=== PATIENT | male | born 1970 | race Caucasian/White ===

== ENCOUNTER 2019-06-29 11:38 | Outpatient (CLI) | payer SELFPAY ==
[2019-06-29 11:53] LABS: Basophils Absolute Auto 0.07 K/mm3 (0.00-0.10); Basophils Percent Auto 0.8 % (0.0-1.0); Eosinophils Absolute Auto 0.22 K/mm3 (0.02-0.50); Eosinophils Percent Auto 2.4 % (1.0-6.0); Hematocrit 44.6 % (40.0-54.0); Hemoglobin 15.6 g/dL (14.0-18.0); Immature Granulocyte Absolute 0.16 K/mm3 (0.00-0.00); Immature Granulocyte Percent A 1.8 % (0.0-0.0); Lymphocytes Absolute Auto 1.94 K/mm3 (1.10-4.50); Lymphocytes Percent Auto 21.4 % (18.0-42.0); Mean Corpuscular Hemoglobin 31.3 pg (27.0-31.0); Mean Corpuscular Volume 89.6 fL (78.0-102.0); Mean Platelet Volume 9.2 fl (8.7-11.0); Monocytes Absolute Auto 0.68 K/mm3 (0.10-0.90); Monocytes Percent Auto 7.5 % (2.0-11.0); Neutrophils Percent Auto 66.1 % (50.0-70.0); Platelet Count Result 297 K/mm3 (150-420); Red Blood Count 4.98 M/mm3 (4.70-6.10); Red Cell Distribution Width 13.8 % (11.6-14.4); White Blood Count 9.1 K/mm3 (4.8-10.8)
[2019-06-29 12:23] LABS: Alanine Aminotransferase 72 U/L (16-63); Albumin Level 3.8 g/dL (3.4-5.0); Alkaline Phosphatase 74 U/L (46-116); Anion Gap 14.3 mmol/L (7-16); Aspartate Amino Transferase 34 U/L (15-37); Bilirubin,Total 0.4 mg/dL (0.00-1.00); Blood Urea Nitrogen 21 mg/dL (7-18); Carbon Dioxide 27 mmol/L (21-32); Chloride 102 mmol/L (98-108); Cholesterol 237 mg/dL (0-200); Estimated Glomerular Filt Rate > 60; Glucose 104 mg/dL (70-99); HDL Direct 66 mg/dL (40-60); LDL Cholesterol Calculated 145 mg/dL (<130); Osmolality Calculated 291 mOsm/kg (285-295); Potassium 4.3 mmol/L (3.5-5.1); Sodium 139 mmol/L (136-145); Total Protein 7.6 g/dL (6.4-8.2); Triglycerides 132 mg/dL (0-150)
[2019-06-29 12:40] LABS: Calcium 8.9 mg/dL (8.5-10.1)
== END 2019-06-29 11:39 | disposition home or self-care (01) ==
PROVIDERS: PCP Nurse Practitioner Family; Visit Provider Nurse Practitioner Family
DX: I10 Essential (primary) hypertension (principal); R73.09 Other abnormal glucose
CPT/HCPCS: 36415; 80053; 80061; 83036; 85025

== ENCOUNTER 2019-07-05 10:27 | Outpatient (CLI) | payer BC, SELFPAY ==
--- NOTE | 2019-07-05 | EST_ITS ---
Patient Info Name: Conor Gorman Age: 48 years : 1970 Gender: Male Ht: 73 in Wt: 310 lbs BSA: 2.75 m2 Exam Date: 07/05/2019 10:48 AM Exam Location: [facility] Stress Patient Status: Outpatient Admit Date: 07/05/2019 Staff Ordering Physician: PHYSICIAN NOT ON STAFF, NONSTAFF Attending Provider: UNKNOWN, DOCTOR Exercise Technologist: Simran Allen RDCS Exercise Physician: Jordi Zuñiga DO Exam Type: CA stress test treadmill Study Info Indications R06.02 - Shortness of breath I10 - Essential (primary) hypertension A treadmill exercise stress test was performed. Summary 1. 1. Negative Johnnie exercise stress test for ischemic ST changes by ECG criteria. 2. 2. Mildly reduced functional capacity, achieving 8.9 METs of workload. 3. 3. Baseline hypertension with hypertensive response to exercise. 4. 4. Appropriate HR response to exercise. 5. 5. Appropriate HR recovery at 1 minute post exercise. 6. 6. No imaging with stress testing. 7. 7. Patient informed of the above results. Protocol: Johnnie Stress ECG Details Stage: REST Duration (min): 7 min : 20 sec Speed (mph): 0.0 Grade (%): 0 HR (bpm): 80 SBP (mmHg): 143 DBP (mmHg): 93 METS: --- Stage: REST Duration (min): 10 min : 2 sec Speed (mph): 0.0 Grade (%): 0 HR (bpm): 87 SBP (mmHg): 143 DBP (mmHg): 93 METS: --- Stage: STAGE 1 Duration (min): 1 min : 0 sec Speed (mph): 1.7 Grade (%): 10 HR (bpm): 101 SBP (mmHg): 143 DBP (mmHg): 93 METS: --- Stage: STAGE 1 Duration (min): 2 min : 0 sec Speed (mph): 1.7 Grade (%): 10 HR (bpm): 105 SBP (mmHg): 143 DBP (mmHg): 93 METS: --- Stage: STAGE 1 Duration (min): 3 min : 0 sec Speed (mph): 1.7 Grade (%): 10 HR (bpm): 113 SBP (mmHg): 186 DBP (mmHg): 97 METS: --- Stage: STAGE 2 Duration (min): 1 min : 0 sec Speed (mph): 2.5 Grade (%): 12 HR (bpm): 119 SBP (mmHg): 186 DBP (mmHg): 97 METS: --- Stage: STAGE 2 Duration (min): 2 min : 0 sec Speed (mph): 2.5 Grade (%): 12 HR (bpm): 130 SBP (mmHg): 217 DBP (mmHg): 120 METS: --- Stage: STAGE 2 Duration (min): 3 min : 0 sec Speed (mph): 2.5 Grade (%): 12 HR (bpm): 137 SBP (mmHg): 235 DBP (mmHg): 113 METS: --- Stage: STAGE 3 Duration (min): 1 min : 0 sec Speed (mph): 3.4 Grade (%): 14 HR (bpm): 144 SBP (mmHg): 210 DBP (mmHg): 115 METS: --- Stage: STAGE 3 Duration (min): 1 min : 6 sec Speed (mph): 3.4 Grade (%): 14 HR (bpm): 147 SBP (mmHg): 210 DBP (mmHg): 115 METS: --- Stage: RECOVERY Duration (min): 0 min : 53 sec Speed (mph): 0.0 Grade (%): 0 HR (bpm): 130 SBP (mmHg): 210 DBP (mmHg): 115 METS: --- Stage: RECOVERY Duration (min): 1 min : 53 sec Speed (mph): 0.0 Grade (%): 0 HR (bpm): 118 SBP (mmHg): 233 DBP
--- NOTE | ~2019-07-05 | XR_ITS ---
EXAMINATION: XR knee LT 2V DATE: 07/05/2019 11:25 INDICATION: Chronic left knee pain. TECHNIQUE: 2 views of left knee were obtained. COMPARISON: Left knee radiographs 05/04/2011 FINDINGS: Bone alignment is normal. No fracture. There is moderate osteoarthritis of medial and ashley lofemoral compartments and mild osteoarthritis of lateral compartment. No knee joint effusion. IMPRESSION: 1. Moderate left knee osteoarthritis. Reviewed, dictated and finalized at location A.
== END 2019-07-05 10:28 | disposition home or self-care (01) ==
PROVIDERS: PCP Nurse Practitioner Family
DX: I10 Essential (primary) hypertension (principal); R06.02 Shortness of breath; M25.562 Pain in left knee; M17.12 Unilateral primary osteoarthritis, left knee
CPT/HCPCS: 73560; 93017

== ENCOUNTER 2019-09-15 14:10 | Outpatient (CLI) | payer BC, SELFPAY ==
--- NOTE | 2019-09-15 14:16 | ECHO_ITS ---
Patient Info Name: Conor Gorman Age: 48 years : 1970 Gender: Male Ht: 73 in Wt: 315 lbs BSA: 2.77 m2 HR: 81 bpm BP: 158 / 75 mmHg Heart Rhythm: Sinus Rhythm Technical Quality: Poor Exam Date: 09/15/2019 2:30 PM Exam Location: [facility] Patient Status: Outpatient Admit Date: 09/15/2019 Staff Ordering Physician: Yamini Jones NP Dry Goods Clerk: Juliana Srinivasan RDCS Attending Provider: Yamini Jones NP Referring Physician: Robert TEMPLETON; Exam Type: CA echo doppler color flow Study Info Indications R06.02 - Shortness of breath Complete two-dimensional, color flow and Doppler transthoracic echocardiogram is performed. Strain analysis performed. Reason for Poor Study: patient body habitus History/Risk Factors Hypertension: Yes Dyslipidemia: No Congenital Heart Disease (CHD): No Peripheral Arterial Disease (PAD): No Myocardial Infarction (NV): No Chronic Lung Disease: No Obesity: Yes Renal Disease: No Congestive Heart Failure (CHF): No Cardiomyopathy/LV Systolic Dysfunction: No Diabetes Mellitus: No COPD: No Tobacco Use: Never Cerebrovascular Disease: No Family History: Diabetes Mellitus, Coronary Artery Disease Deep Vein Thrombosis (DVT): None Dialysis: None Frailty Scale (CSHA): 3: Managing Well Cardiac Arrest: No Prior Interventions Pacemaker: No PCI: No CABG: No Valve Surgery: No ICD: No PV Intervention: None Heart Transplant: No Summary 1. Left ventricular chamber dimension is mildly enlarged. 2. Left ventricular systolic function is normal, estimated at 55-60%. 3. The left ventricular diastolic function is grade I diastolic dysfunction. 4. E/e' 11 is mildly elevated. 5. Global longitudinal strain is abnormal at -14.8%. 6. No pulmonary hypertension, estimated pulmonary arterial systolic pressure is 16 mmHg. Left Ventricle E/e' 11 is mildly elevated. Global longitudinal strain is abnormal at -14.8%. Left ventricular chamber dimension is mildly enlarged. Left ventricular systolic function is normal, estimated at 55-60%. The left ventricular diastolic function is grade I diastolic dysfunction. Right Ventricle Right ventricular chamber dimension is normal. Right ventricular systolic function is normal. Left Atria Left atrial chamber dimension is normal. Right Atria Right atrial chamber dimension is normal. Aortic Valve The aortic valve is trileaflet. There is no aortic valve stenosis. There is no aortic valve regurgitation. Pulmonic Valve There is no pulmonic regurgitation. Mitral Valve There is no mitral valve stenosis. There is no mitral valve regurgitation. Tricuspid Valve There is no tricuspid valve regurgitation. No pulmonary hypertension, estimated pulmonary arterial systolic pressure is 16 mmHg. Pericardium/Pleural There is no pericardial effusion. Inferior Vena Cava Normal inferior vena cava with >50% collapse upon inspiration consistent with normal right atrial pressure, 5 mmHg. Aorta The aortic root size at the sinus of Valsalva is normal. Left Ventricular Outflow Tract Name Value Normal LVOT 2D
== END 2019-09-15 14:11 | disposition home or self-care (01) ==
LOC: CHSIMG 14:12
PROVIDERS: PCP Nurse Practitioner Family; Visit Provider Nurse Practitioner Family
DX: R06.02 Shortness of breath (principal)
CPT/HCPCS: 93306

== ENCOUNTER 2020-05-18 12:24 | Outpatient (CLI) | payer SELFPAY ==
[2020-05-18 13:24] LABS: Alanine Aminotransferase 65 U/L (4-50); Albumin Level 4.2 g/dL (3.5-5.1); Alkaline Phosphatase 80 U/L (38-126); Anion Gap 6 mmol/L (8-16); Aspartate Amino Transferase 53 U/L (17-59); Bilirubin,Total 0.6 mg/dL (0.2-1.3); Blood Urea Nitrogen 12 mg/dL (9-20); Calcium 8.9 mg/dL (8.4-10.2); Carbon Dioxide 28 mmol/L (22-30); Chloride 96 mmol/L (98-107); Cholesterol 174 mg/dL (0-200); Estimated Glomerular Filt Rate > 60; Glucose 113 mg/dL (75-110); HDL Direct 56 mg/dL; Potassium 3.9 mmol/L (3.4-5.0); Sodium 130 mmol/L (137-145); Triglycerides 105 mg/dL (<150)
[2020-05-18 13:32] LABS: Hemoglobin A1C 5.4 % (<5.7)
[2020-05-18 13:35] LABS: LDL Cholesterol Direct 97 mg/dL
== END 2020-05-18 12:25 | disposition home or self-care (01) ==
PROVIDERS: PCP Nurse Practitioner Family; Visit Provider Internal Medicine Cardiovascular Disease
DX: E78.5 Hyperlipidemia, unspecified (principal)
CPT/HCPCS: 36415; 80053; 80061; 83036

== ENCOUNTER 2020-09-25 10:54 | Outpatient (CLI) | payer BC, SELFPAY ==
--- NOTE | ~2020-09-25 | US_ITS ---
EXAMINATION: US soft tissue head and neck DATE: 09/25/2020 11:24 INDICATION: Right posterior neck lump. TECHNIQUE: Multiple grayscale and Doppler ultrasound images of the neck were obtained. COMPARISON: None FINDINGS: In the right posterior neck, there is a 2.1 x 2.0 x 1.2 cm subcutaneous hyperechoic mass. IMPRESSION: 1. 2.1 cm nonspecific subcutaneous mass in right posterior neck. The differential diagnosis includes lipoma, other benign masses such as peripheral nerve sheath tumor, and less likely malignancy. Neck C T with contrast is recommended. Reviewed, dictated and finalized at location A. IMPRESSION: 1. 2.1 cm nonspecific subcutaneous mass in right posterior neck. The differenti al diagnosis includes lipoma, other benign masses such as peripheral nerve venegas th tumor, and less likely malignancy. Neck CT with contrast is recommended.
--- NOTE | ~2020-09-25 | XR_ITS ---
XR chest 2V DATE: 09/25/2020 11:27 INDICATION: Preprocedural examination TECHNIQUE: PA and lateral views COMPARISON: 05/27/2010 CT pulmonary scan and portable AP chest FINDINGS: Heart size is normal. No hilar or mediastinal enlargement. No pulmonary infiltrate or conso lidation, pleural effusion or pulmonary vascular congestion or pneumothorax. Degenerative spurring of the thoracic spine. IMPRESSION: No active cardiopulmonary disease Reviewed, dictated and finalized at location B.
--- NOTE | 2020-09-25 10:59 | ECG_ITS ---
Measurements Intervals [place] Rate: 62 P: -6 ID: [id number] QRS: 25 QRSD: 111 T: 46 QT: 422 QTc: 430 Interpretive Statements SINUS RHYTHM VENTRICULAR PREMATURE COMPLEX INTRAVENTRICULAR CONDUCTION DELAY BORDERLINE ECG Electronically Signed On 09-25-2020 11:50:03 CDT by Jordi Zuñiga D.O.
[2020-09-25 11:13] LABS: Add Urine Microscopic? NO; Appearance Urine Clear (Clear); Basophils Absolute Auto 0.06 K/mm3 (0.00-0.10); Basophils Percent Auto 0.9 % (0.0-1.0); Bilirubin Urine Negative (Negative); Blood Urine Negative (Negative); Color Urine Light Yellow (Yellow); Eosinophils Absolute Auto 0.14 K/mm3 (0.02-0.50); Eosinophils Percent Auto 2.1 % (1.0-6.0); Glucose Urine UA Negative (Negative); Hematocrit 45.8 % (40.0-54.0); Hemoglobin 15.6 g/dL (14.0-18.0); Immature Granulocyte Absolute 0.04 K/mm3 (0.00-0.00); Immature Granulocyte Percent A 0.6 % (0.0-0.0); Ketones Urine Negative (Negative); Leukocyte Esterase Ur Negative LEU/UL (Negative); Lymphocytes Absolute Auto 1.52 K/mm3 (1.10-4.50); Lymphocytes Percent Auto 22.8 % (18.0-42.0); Mean Corpuscular HGB Conc 34.1 g/dL (32.0-36.0); Mean Corpuscular Hemoglobin 30.6 pg (27.0-31.0); Mean Platelet Volume 8.9 fl (8.7-11.0); Monocytes Absolute Auto 0.57 K/mm3 (0.10-0.90); Monocytes Percent Auto 8.6 % (2.0-11.0); Neutrophils Absolute Auto 4.3 K/mm3 (1.7-7.2); Nitrate Urine Negative (Negative); Platelet Count Result 282 K/mm3 (150-420); Protein Urine Negative (Negative); Red Blood Count 5.09 M/mm3 (4.70-6.10); Red Cell Distribution Width 13.1 % (11.6-14.4); Urobilinogen Urine 0.2 mg/dL (0.2-1.0); White Blood Count 6.7 K/mm3 (4.8-10.8); pH Urine 6.5 (5.0-8.0)
[2020-09-25 11:46] LABS: Alanine Aminotransferase 76 U/L (16-63); Alkaline Phosphatase 73 U/L (46-116); Anion Gap 13 mmol/L (8-16); Aspartate Amino Transferase 25 U/L (15-37); Bilirubin,Total 0.6 mg/dL (0.00-1.00); Blood Urea Nitrogen 14 mg/dL (7-18); Calcium 9.2 mg/dL (8.5-10.1); Carbon Dioxide 26 mmol/L (21-32); Chloride 104 mmol/L (98-108); Estimated Glomerular Filt Rate > 60; Glucose 95 mg/dL (70-99); Osmolality Calculated 296 mOsm/kg (285-295); Potassium 4.2 mmol/L (3.5-5.1); Sodium 143 mmol/L (136-145); Total Protein 7.5 g/dL (6.4-8.2)
== END 2020-09-25 10:55 | disposition home or self-care (01) ==
LOC: CHSIMG 10:58
PROVIDERS: PCP Nurse Practitioner Family; Visit Provider Nurse Practitioner Family
DX: R22.1 Localized swelling, mass and lump, neck (principal); Z01.818 Encounter for other preprocedural examination
CPT/HCPCS: 36415; 71046; 76536; 80053; 81003; 85025; 93005

== ENCOUNTER 2020-10-03 08:41 | Outpatient (CLI) | payer BC, SELFPAY ==
--- NOTE | ~2020-10-03 | CT_ITS ---
EXAMINATION: CT soft tissue neck w con DATE: 10/03/2020 09:30 INDICATION: Right posterior neck lump. TECHNIQUE: Computed tomography (CT) of the neck was performed with 75 mL Omnipaque-350 intravenous co ntrast. Automated exposure control and iterative reconstruction technique were employed. The dose-eliza gth product was 607.48 mGy-cm. COMPARISON: Ultrasound 09/25/2020 FINDINGS: There are no pathologically enlarged lymph nodes. There is a 2.1 cm subcutaneous lipoma in the right posterior neck. A skin marker overlies this area. There is mild mucosal thickening in the p aranasal sinuses. There is mild plaque in the proximal internal carotid arteries with 0% stenosis rel ative to normal distal artery lumen diameters. There is severe cervical spondylosis. IMPRESSION: 1. 2.1 cm subcutaneous lipoma in right posterior neck. Reviewed, dictated and finalized at location A.
== END 2020-10-03 08:42 | disposition home or self-care (01) ==
LOC: CHSIMG 08:42
PROVIDERS: PCP Nurse Practitioner Family; Visit Provider Nurse Practitioner Family
DX: R22.0 Localized swelling, mass and lump, head (principal); R22.1 Localized swelling, mass and lump, neck
CPT/HCPCS: 70491; Q9967

== ENCOUNTER 2020-10-11 09:54 | Outpatient (CLI) | payer BC, SELFPAY ==
[2020-10-11 11:11] LABS: INR 0.9; Partial Thromboplastin Time 25.3 SECONDS (22.3-36.8); Prothrombin Time 12.2 Seconds (11.1-14.7)
[2020-10-11 11:21] LABS: Urine Cotinine NEGATIVE
[2020-10-11 13:09] LABS: Hemoglobin A1C 5.3 % (<5.7)
== END 2020-10-11 09:55 | disposition home or self-care (01) ==
LOC: ANHSURGERY 09:56
PROVIDERS: PCP Nurse Practitioner Family; Visit Provider Orthopaedic Surgery
DX: Z01.818 Encounter for other preprocedural examination (principal); M17.12 Unilateral primary osteoarthritis, left knee
CPT/HCPCS: 80307; 83036; 85610; 85730; 86850; 86900; 86901; 87081

== ENCOUNTER 2020-11-15 09:28 | Outpatient (CLI) | payer BC, SELFPAY | END 2020-11-15 09:29 | disposition home or self-care (01) | LOC: ANHSURGERY 09:33 | PROVIDERS: PCP Nurse Practitioner Family; Visit Provider Orthopaedic Surgery | DX: Z01.818 Encounter for other preprocedural examination (principal); M25.562 Pain in left knee | CPT/HCPCS: 36415; 86850; 86900; 86901 ==

== ENCOUNTER → 2020-11-17 00:08 | Outpatient (CLI) | payer BC, SELFPAY ==
[2020-11-17 18:03] LABS: SARS-CoV-2 RNA PCR Negative
== END ==
PROVIDERS: PCP Nurse Practitioner Family; Visit Provider Orthopaedic Surgery
DX: Z01.812 Encounter for preprocedural laboratory examination (principal); Z20.822 Contact with and (suspected) exposure to COVID-19
CPT/HCPCS: C9803; U0003; U0005

== ENCOUNTER 2020-11-21 01:35 | Day surgery (SDC) | payer BC, SELFPAY ==
[2020-10-11 09:54] VITALS: BMI 39.4
[2020-10-11 10:36] VITALS: BP 141/73; PULSE 66; RESP 16; TEMP 36.6; O2SAT 99
[2020-11-13 13:44] VITALS: BMI 38.9
--- NOTE | 2020-11-13 13:45 | PC.NURSE ---
Pt states no changes in medications or health history, except for excision of neck mass on 11/12, since initial interview. New pre-op instructions reviewed with patient. Pt denies any questions at this time.
[2020-11-21] VITALS (13 sets, daily range): BP systolic 140–175; BP diastolic 73–92; PULSE 65–92; RESP 16–116; TEMP 36.5–37.3; O2SAT 96–100; BMI 39.4
--- NOTE | ~2020-11-21 | XR_ITS ---
EXAMINATION: XR knee LT 2V EXAM DATE: 11/21/2020 10:51 INDICATION: Left knee arthroplasty. TECHNIQUE: Portable frontal, crosstable lateral projections left knee obtained immediately following arthroplasty performed by orthopedic surgeon Daniel Villalobos MD. FINDINGS: Patient is status post total knee arthroplasty. The orthopedic hardware is in expected po sition. There are delaney overlying the anterior aspect of the knee. There is small amount of subcu taneous gas, gas within the knee joint space. Overlying soft tissue swelling. Correlate with proced ure note. IMPRESSION: Status post total left knee arthroplasty. Reviewed, dictated and finalized at location A.
[2020-11-21] MEDS: LACTATED RINGERS 1,000 ML 30 ML IV CONT ×3 (06:40→12:20)
[2020-11-21] MEDS: TRANEXAMIC ACID 1,000MG/ISO100 1,000 MG/100 ML BAG 200 MG IVPB (06:44)
[2020-11-21] MEDS: ACETAMINOPHEN 500 MG TABLET 1000 MG PO (06:45)
--- NOTE | 2020-11-21 07:04 | WPDANESEPPF ---
Anes - Initial Pre Proc Eval Procedure: Operation Date: 11/21/20 07:30 Proposed Procedures p Left Total Knee Arthroplasty - Daniel Villalobos MD Date/Time: 11/21/20 07:04 Surgeon: Daniel Villalobos MD Pre Op Diagnosis: Left Knee DJD Patient Data Age: 50 Gender: M Height: 1.85 m Weight: 135.5 kg Last Vital Signs Temp 36.6 C 10/11/20 10:36 Pulse 66 10/11/20 10:36 Resp 16 10/11/20 10:36 BP 141/73 H 10/11/20 10:36 Pulse Ox 99 10/11/20 10:36 Allergies Allergy/AdvReac Type Severity Reaction Status Date / Time No Known Allergies Allergy Mild Verified 11/21/20 06:22 Home Medications Medication Instructions Recorded Confirmed Type cetirizine 10 mg tablet 10 mg PO DAILY PRN #30 tablet 02/13/20 11/16/20 Rx cyclobenzaprine 10 mg PO HS PRN 11/13/20 11/16/20 History hydrochlorothiazide 25 mg tablet 25 mg PO DAILY tablet 11/16/20 11/21/20 History Patient hx anesthesia problems: none Family hx anesthesia problems: none Results Review: All pre-operative results and documents have been reviewed as part of the pre-operative evaluation. [facility] Past Medical History Medical History Hypertension Osteoarthritis of left knee Weight gain Surgical History Surgical History H/O carpal tunnel repair H/O knee surgery L knee Family History Family History Father Family history of heart disease in male family member before age 55 Diabetes mellitus Hypertension Mother Heart disease Sibling Diabetes mellitus Social History Social History Smoking status: Never smoker Second hand tobacco smoke exposure: No Additional smoking assessment comments: DENIES ANY FORM OF TOBACCO USE Alcohol intake: current Drinks per week: 15 Alcohol use details: BEER Substance use: never Substance use type: does not use Living arrangements: with friend(s) Additional occupation/education comments: [email or web address] Gender identity (if verbalized by the patient): Male Spiritual care concerns: No Anes - Eval Final PreProcedure Day of Procedure 11/21/20 07:04 Patient weight: morbidly obese Heart: regular rate and rhythm Lungs: clear to auscultation Airway: Mallampati scale class III Neurological: alert and oriented Last oral intake: >/= 8 hours ASA classification: III Anesthetic plan: proceed Anesthesia type and monitoring: general LMA and standard monitoring Results Review: All pre-operative results and documents have been reviewed as part of the pre-operative evaluation. Informed Consent: The patient's anesthetic plan and its attendant risks and benefits were discussed with the patient/family/POA. Questions were solicited and answers provided to the satisfaction of the patient/family/POA.
--- NOTE | 2020-11-21 07:18 | WPDHPUPDATE1 ---
History and Physical Update Update Date/Time: 11/21/20 07:18 History and Physical has been reviewed, including an updated exam of the patient. There are NO changes in the patient's condition. Risks, benefits, and alternatives have been discussed and questions answered. Patient agrees to proceed with procedure.
[2020-11-21] MEDS: ceFAZolin 3 GM/D5W 100 ML 100 ML IVPB (07:30)
--- NOTE | 2020-11-21 07:30 | PM.IMHP ---
H&P: HPI History of Present Illness Date/Time: 11/21/20 07:30 Knee Pain Pt presents with left knee pain. He states his pain has been ongoing but has been worsening over the recent months. He was dx with DJD with varus deformity. He has participated in some PT. He also underwent a left knee injection 07/02/20 which, he states, has provided good pain relief. He states the injection is beginning to wear off, but still providing some relief. His BMI has lowered to 40.3%(from 44.8%). Involved knee: left Onset: gradual Location of pain: medial and anterior Character: stabbing, throbbing and shooting Timing of pain: constant Exacerbated by: weight bearing, kneeling, squatting, stairs, running, rotational activities, prolonged activity, walking up stairs and walking down stairs Relieved by: elevation, ice and rest Associated symptoms: Reports popping, instability, buckling, giving way and shifting History of occupational/recreational activity with repetitive motion: No History of prior knee injury: Yes (Left knee arthroscopy x2) Prior treatment: surgery (x2) Chief Complaint: LEFT KNEE PAIN Review of Systems Review of Systems: All systems reviewed & are unremarkable except as noted in HPI and below Constitutional: Constitutional: Reports no additional constitutional complaints Eyes: Eyes: Reports no additional eye complaints ENT: Reports system reviewed and no additional complaints, except as documented Cardiovascular: Cardiovascular: Reports no additional cardiovascular complaints Respiratory: Respiratory: Reports no additional respiratory complaints Gastrointestinal: Gastrointestinal: Reports no additional gastrointestinal complaints Genitourinary: Genitourinary: Denies hematuria Musculoskeletal: Musculoskeletal: Reports no additional musculoskeletal complaints and Reports as per HPI Integumentary/Breasts: Skin/Breast: Reports system reviewed and no additional complaints, except as docu Neurologic: Reports system reviewed and no additional complaints, except as documented Psychiatric: Psychiatric: Reports no additional psychiatric complaints Endocrine: Endocrine: Reports no additional endocrine complaints Hematologic/Lymphatic: Hematologic/Lymphatic: Reports no additional hematologic/lymphatic complaints Allergic/Immunologic: Allergic/Immunologic: Reports no additional allergic/immunologic complaints [facility] Past Medical History Medical History Hypertension Osteoarthritis of left knee Weight gain Surgical History Surgical History H/O carpal tunnel repair H/O knee surgery L knee Family History Family History Father Family history of heart disease in male family member before age 55 Diabetes mellitus Hypertension Mother Heart disease Sibling Diabetes mellitus Social History Social History Smoking status: Never smoker Second hand tobacco smoke exposure: No Additional smoking assessment comments: DENIES ANY FORM OF TOBACCO USE Alcohol intake: current Drinks per week: 15 Alcohol use details: BEER Substance use: never Substance use type: does not use Living arrangements: with friend(s) Additional occupation/education comments: [employer] Gender identity (if verbalized by the patient): Male Spiritual care concerns: No Meds Home Medications and Allergies Home Medications Medication Instructions Recorded Confirmed Type cetirizine 10 mg tablet 10 mg PO DAILY PRN #30 tablet 02/13/20 11/16/20 Rx cyclobenzaprine 10 mg PO HS PRN 11/13/20 11/16/20 History hydrochlorothiazide 25 mg tablet 25 mg PO DAILY tablet 11/16/20 11/21/20 History Allergies Allergy/AdvReac Type Severity Reaction Status Date / Time No Known Allergies Allergy Mild Verified 10/25
--- NOTE | 2020-11-21 07:33 | WPDANESPNB ---
Anes - Peripheral Nerve Block Date/Time: 11/21/20 07:33 I have discussed with the patient/family/POA the placement of a peripheral nerve block for post-operative pain management, including associated risks, benefits, complications, and side effects. Alternative methods of post-operative analgesia were detailed. Questions were solicited and answers provided to the satisfaction of the patient/family/POA. Time-Out: A pre-procedural Time-Out was completed immediately before starting the procedure and confirmed: Patient Identification, Site, Procedure, Patient Position and the Availability of Requisite Equipment. Clinical Indications: Acute post-operative pain management requested by the operative surgeon. Nerve Block Insertion Note Anes-nerve block: adductor canal left Patient position: supine Skin prep: chlorhexidine Needle: 22 gauge, stimulating, insulated echogenic needle. Needle length: 80 mm Technique: ultrasound Technique comment: mid2mg morphine 10mg Injectate: bupivacaine 0.5% with epi 5 mcg/ml (30ml no epi) and dexamethasone (mg) (4) Observations: tolerated well Complications: none Procedure start time:: 720 Procedure end time:: 727
[2020-11-21] MEDS: TRANEXAMIC ACID 1,000 MG/10 ML AMPUL 1000 MG IV PUSH (09:50)
--- NOTE | 2020-11-21 10:49 | W.PM.PROC2 ---
Procedure Note - Detailed Date of Procedure 11/21/20 Pre-op Diagnosis Left Knee DJD Post-op Diagnosis same Procedure Performed L TKA Surgeon Daniel Villalobos MD Anesthesia general Description of Procedure THE LEFT KNEE WAS PREPPED AND DRAPED IN THE STERILE FASHION. THERE WAS A 20 DEGREE FLEXION CONTRACTURE. A MIDLINE SKIN INCISION WAS MADE. A MEDIAL PARAPATELLAR ARTHROTOMY WAS MADE. THE PATELLA WAS EVERTED. THERE WAS TRICOMPARTMENT DJD. THERE WAS MINIMAL PATELLA DJD. AN INTRAMEDULLARY ANJALI WAS PLACED IN THE FEMUR. A DISTAL FEMORAL CUT WAS MADE IN 5 DEGREES OF VALGUS REMOVING APPROXIMATELY 11 MM OF BONE FROM THE DISTAL FEMUR. THE FEMUR WAS SIZED TO 75. A 75 FEMORAL CUTTING BLOCK WAS PLACED IN 3 DEGREES OF EXTERNAL ROTATION AND IN ALIGNMENT WITH JOSE'S LINE AND THE TRANSEPICONDYLAR AXIS. ANTERIOR POSTERIOR AND CHAMFER CUTS WERE MADE. THE CUTS WERE EXCELLENT. NEXT AN INTRAMEDULLARY CUTTING GUIDE WAS PLACED IN THE TIBIA. A TRANS TIBIAL CUT WAS MADE ALONG THE LONG AXIS OF THE TIBIA. APPROXIMATELY 10 MM OF BONE WAS REMOVED FROM THE HIGH SIDE OF THE TIBIA. THE TIBIA WAS THEN PLANED TO A SMOOTH SURFACE. POSTERIOR FEMORAL OSTEOPHYTES WERE REMOVED FROM THE FEMORAL CONDYLES. A 87 TIBIAL TRIAL WAS PLACED IN ALIGNMENT WITH THE 1/3 MEDIAL ASPECT OF THE TIBIAL TUBERCLE. THEN A 75 FEMORAL TRIAL COMPONENT WAS PLACED. BOTH HAD EXCELLENT FITS. EVENTUALLY A 12 MM POLYETHYLENE TRIAL COMPONENT WAS PLACED. THE KNEE WAS TAKEN THROUGH A RANGE OF MOTION. THE KNEE CAME OUT TO FULL EXTENSION. THERE WAS NO ABNORMAL TILT TO THE PATELLA. THERE WAS GOOD A/P AND VARUS/VALGUS STABILITY. THERE WAS NO EXCESSIVE ROLL BACK WITH FLEXION. THE TRIAL COMPONENTS WERE REMOVED. THEN A 75 FEMORAL COMPONENT AND 87 TIBIAL COMPONENT WITH A 12 POLYETHYLENE COMPONENT WERE PRESS FIT INTO PLACE. THE KNEE WAS TAKEN THROUGH A ROM AGAIN AND FOUND TO BE STABLE WITH NO PATELLA TILT NO EXCESSIVE ROLL BACK WITH FLEXION AND GOOD STABILITY WITH COMPLETE AND FULL EXTENSION. THE KNEE WAS IRRIGATED WITH STERILE BETADINE AND WATER FOR ABOUT 3 MINUTES. THE BLEEDERS WERE CAUTERIZED. THE ARTHROTOMY WAS REPAIRED WITH NUMBER 1 VICRYL. THE SUB CUTANEOUS LAYER WITH 2-0 VICRYL AND THE SKIN WITH OLIVIA. THE WOUND WAS WASHED AND A STERILE DRESSING WAS APPLIED. PATIENT WAS EXTUBATED. Estimated Blood Loss -100.0 Pathology none sent Complications No immediate complications Condition stable Disposition PACU
[2020-11-21] MEDS: HYDROmorphone HCL INJ (*CRX) 1 MG/ML SYR 0.5 MG IV PUSH ×4 (11:00→11:57)
--- NOTE | 2020-11-21 11:18 | SUR.PHASEI ---
1115 - pillows x2 under knee, medicated for pain, ice bag in place. [id number]
--- NOTE | 2020-11-21 11:25 | SUR.PHASEI ---
1122- - left message to update family.
[2020-11-21] MEDS: ONDANSETRON INJ 4 MG/2 ML VIAL IV PUSH (12:02)
--- NOTE | 2020-11-21 12:28 | SUR.PHASEII ---
1225 DR WALDEN SPEAKING WITH PT & SIG. OTHER.
[2020-11-21] MEDS: SCOPOLAMINE 1.5 MG PATCH TRANSDERM (12:40)
[2020-11-21] MEDS: diphenhydrAMINE HCl INJ 50 MG/ML VIAL 25 MG IV PUSH (12:41)
--- NOTE | 2020-11-21 14:23 | SUR.PHASEII ---
1423 - physical therapy here to work with pt. pt finished eating meal. Nausea better.
[2020-11-21] MEDS: oxyCODONE HCL (*CRX) 5 MG TAB IR PO (14:45)
== END 2020-11-21 15:15 | disposition home or self-care (01) ==
PROVIDERS: PCP Nurse Practitioner Family; Visit Provider Orthopaedic Surgery
PROC: (CPT 27447; principal; 2020-11-21 07:30)
DX: M17.12 Unilateral primary osteoarthritis, left knee (principal); G89.18 Other acute postprocedural pain; I10 Essential (primary) hypertension; E66.01 Morbid (severe) obesity due to excess calories; Z68.39 Body mass index [BMI] 39.0-39.9, adult
CPT/HCPCS: 27447; 64447; 36415; 73560; 86850; 86900; 86901; 97110; 97161; A9270; C1713; C1776; C9803; J0171; J0690; J1100; J1170; J1200; J2250; J2270; J2405; J2704; J2795; J7120; U0003; U0005

== ENCOUNTER 2021-11-21 10:48 | Outpatient (CLI) | payer BC, SELFPAY ==
[2021-11-21 12:10] LABS: Alanine Aminotransferase 59 U/L (6-50); Albumin Level 4.9 g/dL (3.5-5.1); Alkaline Phosphatase 79 U/L (38-126); Anion Gap 16 mmol/L (8-16); Aspartate Amino Transferase 42 U/L (17-59); Bilirubin,Total 1.1 mg/dL (0.2-1.3); Blood Urea Nitrogen 13 mg/dL (9-20); Calcium 9.3 mg/dL (8.4-10.2); Carbon Dioxide 25 mmol/L (22-30); Chloride 94 mmol/L (98-107); Cholesterol 210 mg/dL (0-200); Estimated Glomerular Filt Rate > 60; Glucose 121 mg/dL (65-110); HDL Direct 59 mg/dL; Potassium 3.9 mmol/L (3.4-5.0); Sodium 135 mmol/L (137-145); Triglycerides 133 mg/dL (<150)
[2021-11-21 12:21] LABS: LDL Cholesterol Direct 111 mg/dL
== END 2021-11-21 10:49 | disposition home or self-care (01) ==
LOC: ANHLAB 10:49
PROVIDERS: PCP Nurse Practitioner Family; Visit Provider Internal Medicine Cardiovascular Disease
DX: E78.5 Hyperlipidemia, unspecified (principal)
CPT/HCPCS: 36415; 80053; 80061

== ENCOUNTER 2022-11-14 10:45 | Outpatient (CLI) | payer BC, SELFPAY ==
[2022-11-20 13:38] LABS: Testosterone Free 43.4 pg/mL (35.0-155.0); Testosterone Total 226 ng/dL (250-1100)
== END 2022-11-14 10:46 | disposition home or self-care (01) ==
LOC: ANHLAB 10:46
PROVIDERS: PCP Nurse Practitioner Family; Visit Provider Nurse Practitioner Family
DX: R68.82 Decreased libido (principal)
CPT/HCPCS: 36415; 84402; 84403

== ENCOUNTER 2022-12-27 09:21 | Outpatient (CLI) | payer BC, SELFPAY ==
[2022-12-27 10:43] LABS: LDL Cholesterol Direct 108 mg/dL
[2022-12-27 10:45] LABS: Alanine Aminotransferase 125 U/L (6-50); Albumin Level 4.6 g/dL (3.5-5.1); Alkaline Phosphatase 52 U/L (38-126); Anion Gap 10 mmol/L (8-16); Aspartate Amino Transferase 85 U/L (17-59); Blood Urea Nitrogen 10 mg/dL (9-20); Calcium 8.7 mg/dL (8.4-10.2); Carbon Dioxide 25 mmol/L (22-30); Chloride 99 mmol/L (98-107); Cholesterol 187 mg/dL (0-200); Estimated Glomerular Filt Rate > 60; Glucose 119 mg/dL (65-110); HDL Direct 48 mg/dL; Magnesium 2.3 mg/dL (1.6-2.3); Potassium 4.4 mmol/L (3.4-5.0); Sodium 134 mmol/L (137-145); Triglycerides 66 mg/dL (<150)
[2022-12-27 11:59] LABS: Hemoglobin A1C 5.6 % (<5.7)
== END 2022-12-27 09:22 | disposition home or self-care (01) ==
LOC: ANHLAB 09:22
PROVIDERS: PCP Nurse Practitioner Family; Visit Provider Internal Medicine Cardiovascular Disease
DX: E78.5 Hyperlipidemia, unspecified (principal)
CPT/HCPCS: 36415; 80053; 80061; 83036; 83735

== ENCOUNTER 2023-05-11 10:07 | Outpatient (CLI) | payer BC, SELFPAY ==
[2023-05-11 10:24] LABS: Hematocrit 44.7 % (40.0-54.0); Hemoglobin 15.7 g/dL (14.0-18.0); Mean Corpuscular HGB Conc 35.1 g/dL (32-36); Mean Corpuscular Hemoglobin 31.5 pg (27.0-31.0); Mean Corpuscular Volume 89.8 fL (78.0-102.0); Mean Platelet Volume 8.6 fl (8.7-11.0); Platelet Count Result 290 K/mm3 (150-420); Red Blood Count 4.98 M/mm3 (4.70-6.10); Red Cell Distribution Width 13.2 % (11.6-14.4); White Blood Count 8.8 K/mm3 (4.8-10.8)
[2023-05-11 11:44] LABS: Alanine Aminotransferase 96 U/L (16-63); Albumin Level 3.7 g/dL (3.4-5.0); Alkaline Phosphatase 71 U/L (46-116); Anion Gap 10 mmol/L (8-16); Aspartate Amino Transferase 36 U/L (15-37); Bilirubin,Total 0.6 mg/dL (0.00-1.00); Blood Urea Nitrogen 9 mg/dL (7-18); Calcium 9.2 mg/dL (8.5-10.1); Carbon Dioxide 26 mmol/L (21-32); Chloride 101 mmol/L (98-108); Estimated Glomerular Filt Rate > 60; Glucose 131 mg/dL (70-99); Osmolality Calculated 284 mOsm/kg (285-295); Potassium 4.3 mmol/L (3.5-5.1); Prostate Specific Antigen 0.7 ng/mL (< OR = 4.0); Sodium 137 mmol/L (136-145); Total Protein 7.5 g/dL (6.4-8.2)
[2023-05-14 11:41] LABS: Testosterone Total 305 ng/dL (250-1100)
[2023-05-14 14:48] LABS: Sex Hormone Binding Globulin 22 nmol/L (10-50); Testosterone Free 53.7 pg/mL (46.0-224.0)
[2023-05-16 09:43] LABS: FSH 18.4 mIU/mL (1.4-12.8); LH 7.9 mIU/mL (1.5-9.3); Prolactin 10.4 ng/mL (***)
== END 2023-05-11 10:08 | disposition home or self-care (01) ==
LOC: CHSLAB 10:09
PROVIDERS: PCP Nurse Practitioner Family; Visit Provider Internal Medicine
DX: Z12.5 Encounter for screening for malignant neoplasm of prostate (principal); R68.82 Decreased libido
CPT/HCPCS: 36415; 80053; 83001; 83002; 84146; 84153; 84270; 84402; 84403; 85027; G0103